=== PATIENT | female | born 2000 | race Two or more races ===

== ENCOUNTER 2019-03-26 09:37 | Emergency (ER) | payer MEDICAID ==
[~2019-03-26] VITALS: Ht 160 cm; Wt 56.2 kg
[2019-03-26 10:05] LABS: Urine Bacteria NONE SEEN /hpf (None Seen); Urine Blood Negative /uL (Negative); Urine Mucus FEW (None Seen); Urine Specific Gravity 1.016 (1.001-1.035); Urine WBC 216 /hpf (0 - 5)
[2019-03-26 13:03] VITALS: BP 98/53
== END 2019-03-26 14:50 | disposition home or self-care (01) ==
LOC: ER 09:37
DX: O23.41 Unspecified infection of urinary tract in pregnancy, first trimester (principal); O21.8 Other vomiting complicating pregnancy; Z3A.11 11 weeks gestation of pregnancy
CPT/HCPCS: 36415; 76801; 81001; 81025; 84702

== ENCOUNTER 2019-04-16 14:24 | Emergency (ER) | payer SELFPAY ==
[~2019-04-16] VITALS: Ht 157.5 cm; Wt 57.2 kg
[2019-04-16 15:15] VITALS: BP 114/75
== END 2019-04-16 17:26 | disposition home or self-care (01) ==
LOC: ER 14:24
DX: L25.9 Unspecified contact dermatitis, unspecified cause (principal); Z88.0 Allergy status to penicillin

== ENCOUNTER 2019-06-10 20:42 | Observation (INO) | payer MEDICAID ==
[2019-06-10] MEDS ORDERED: PREN-153 OR (22:25)
== END 2019-06-10 22:12 | disposition home or self-care (01) | DRG 566 ==
LOC: LDRP 20:42
PROVIDERS: ADMIT Obstetrics & Gynecology; ATTEND Obstetrics & Gynecology
DX: O26.892 Other specified pregnancy related conditions, second trimester (principal); M54.9 Dorsalgia, unspecified; R10.9 Unspecified abdominal pain; O99.89 Other specified diseases and conditions complicating pregnancy, childbirth and the puerperium; Z3A.21 21 weeks gestation of pregnancy
CPT/HCPCS: 59025; 81002; G0378

== ENCOUNTER 2019-06-21 12:24 | Emergency (ER) | payer MEDICAID ==
[~2019-06-21] VITALS: Ht 157.5 cm; Wt 63.0 kg
[~2019-06-21 12:24] MED LIST: PREN-153 OR
[2019-06-21 15:20] VITALS: BP 122/72
== END 2019-06-21 15:48 | disposition home or self-care (01) ==
LOC: ER 12:24
DX: R21 Rash and other nonspecific skin eruption (principal); Z88.0 Allergy status to penicillin

== ENCOUNTER 2019-07-30 21:31 | Observation (INO) | payer MEDICAID, OTHER ==
[~2019-07-30] VITALS: Ht 157.5 cm; Wt 65.3 kg
== END 2019-07-30 23:08 | disposition home or self-care (01) | DRG 566 ==
LOC: LDRP 21:31
PROVIDERS: ADMIT Specialist; ATTEND Specialist
DX: O9A.213 Injury, poisoning and certain other consequences of external causes complicating pregnancy, third trimester (principal); Z3A.28 28 weeks gestation of pregnancy; W19.XXXA Unspecified fall, initial encounter; Y93.89 Activity, other specified; Y92.89 Other specified places as the place of occurrence of the external cause
CPT/HCPCS: 59025; 76815; 81002; G0378

== ENCOUNTER 2019-10-18 09:31 | Observation (INO) | payer MEDICAID, OTHER | END 2019-10-18 12:52 | disposition home or self-care (01) | DRG 566 | LOC: LDRP 09:31 | PROVIDERS: ADMIT Obstetrics & Gynecology; ATTEND Obstetrics & Gynecology | DX: O46.93 Antepartum hemorrhage, unspecified, third trimester (principal); O21.2 Late vomiting of pregnancy; Z3A.39 39 weeks gestation of pregnancy | CPT/HCPCS: 59025; 76818; 81002; 84112; G0378; Q0114 ==

== ENCOUNTER 2019-10-19 19:29 | Inpatient (IN) | payer MEDICAID ==
[~2019-10-19] VITALS: Ht 157.5 cm; Wt 72.6 kg
[2019-10-19 20:54] LABS: Urine Bacteria NONE SEEN /hpf (None Seen); Urine Blood 2+ /uL (Negative); Urine Mucus FEW (None Seen); Urine Specific Gravity 1.025 (1.001-1.035); Urine WBC 31 /hpf (0 - 5)
[2019-10-19] MEDS ORDERED: LACTATED RINGER'S 1,000 ML IV SCH (21:29)
[2019-10-19] MEDS ORDERED: CARBOPROST TROMETHAMINE 250 MCG/1ML VIAL IM PRN (21:30)
[2019-10-19] MEDS ORDERED: PHISODERM TOP SOLN 240ML BTL TOP PRN (21:30)
[2019-10-19] MEDS ORDERED: BUTORPHANOL TARTRATE 2 MG/1 ML VIAL IV PRN (21:30)
[2019-10-19] MEDS ORDERED: METHYLERGONOVINE MALEATE 0.2 MG/ML AMP IM PRN (21:30)
[2019-10-19] MEDS ORDERED: LIDOCAINE 2%HCL (LOCAL ANESTH.) INJ 20ML MDV ID ONE (21:30)
[2019-10-19] MEDS ORDERED: ceFAZolin 1GM/50ML 50 ML IV SCH (22:00)
[2019-10-19 23:09] LABS: INR 0.94 (0.9-1.15); Partial Thromboplastin Time 27.9 sec (23.64-32.05)
[2019-10-19 23:14] LABS: Albumin 2.6 g/dL (3.4-5.0); Calcium 8.8 mg/dL (8.5-10.1); Potassium 3.5 mmol/L (3.5-5.1)
[2019-10-19 23:17] LABS: BUN/Creatinine Ratio 18.9; Bilirubin, Total 0.3 mg/dL (0.2-1.0)
[2019-10-19] MEDS: CLINDAMYCIN 900MG IV 50 ML IV SCH (23:20)
[2019-10-19 23:51] LABS: Basophils # (auto) 0 10 ^3/uL (0-0.2); Basophils % (auto) 0.2 % (0.0-2.0); Eosinophils # (auto) 0.1 10 ^3/uL (0-0.8); Eosinophils % (auto) 1.1 % (0.0-7.0); Hematocrit 39.4 % (36.0-46.0); Hemoglobin 13.2 g/dL (12.2-16.2); Lymphocytes # (auto) 1.9 10 ^3/uL (0.4-5.4); Lymphocytes % (auto) 15.8 % (10.0-50.0); Mean Corpuscular Hemoglobin 29.4 pg (28.0-32.0); Mean Corpuscular Hgb Conc. 33.5 g/dL (32.0-36.0); Mean Corpuscular Volume 87.8 fL (80.0-100.0); Monocytes % (auto) 8.9 % (0.0-12.0); Neutrophils # (auto) 8.8 10 ^3/uL (1.6-8.6); Nucleated Red Blood Cells % 0.1 %; Platelet Count (auto) 250 10^3/uL (140-450); Red Blood Cells 4.49 10^6/uL (4.0-5.20); Red Cell Distribution Width 14.2 % (11.8-14.3); White Blood Cell 11.8 10^3/uL (4.4-10.8)
[2019-10-20] MEDS ORDERED: LACTATED RINGER'S 500 ML IV ONE (00:22)
[2019-10-20] MEDS ORDERED: LACTATED RINGER'S 1,000 ML IV ONE (00:22)
[2019-10-20] MEDS ORDERED: NALOXONE HCL 0.4 MG/ML VIAL IV ONE (00:30)
[2019-10-20] MEDS ORDERED: ePHEDrine SULFATE 50 MG/ML AMP IV ONE (00:30)
[2019-10-20] MEDS ORDERED: fentaNYL 200mCg/100ml W ROPIVA 100 ML EPI SCH ×2 (00:30→01:15)
[2019-10-20] MEDS ORDERED: LIDOCAINE W/ EPINEPHRINE 1 % INJ 30ML IJ ONE (00:30)
[2019-10-20] MEDS ORDERED: fentaNYL CITRATE 100 MCG/2 ML VL IV ONE (00:30)
[2019-10-20] MEDS: DERMOPLAST 60ML BOTTLE TOP PRN (00:40)
[2019-10-20] MEDS: WITCH HAZEL-GLYCERIN PAD TOP PRN (00:40)
[2019-10-20] MEDS ORDERED: LACT. RINGERS/OXYTOCIN 20UNITS 1,000 ML IV SCH ×2 (01:34→14:01)
[2019-10-20] MEDS: LACT. RINGERS/OXYTOCIN 20UNITS 1,000 ML IV SCH ×2 (01:42→12:27)
[2019-10-20] MEDS ORDERED: TERBUTALINE SULFATE 1 MG/ML 1ML VIAL SC ONE (01:45)
[2019-10-20] MEDS: CLINDAMYCIN 900MG IV 50 ML IV SCH ×3 (05:52→21:44)
[2019-10-20] MEDS ORDERED: LACT. RINGERS/OXYTOCIN 20UNITS 500 ML IV ONE (13:01)
[2019-10-20] MEDS ORDERED: ACETAMINOPHEN 325 MG TAB PO PRN (13:15)
[2019-10-20] MEDS: IBUPROFEN 600 MG TAB PO PRN ×2 (13:20→19:41)
[2019-10-20 14:42] VITALS: BP 98/54
[2019-10-20 19:00] VITALS: BP 101/54
[2019-10-20 23:00] VITALS: BP 101/56
[2019-10-21] MEDS: WITCH HAZEL-GLYCERIN PAD TOP PRN (02:14)
[2019-10-21] MEDS: IBUPROFEN 600 MG TAB PO PRN ×2 (02:14→10:29)
[2019-10-21] MEDS: DERMOPLAST 60ML BOTTLE TOP PRN (02:14)
[2019-10-21 03:00] VITALS: BP 103/55
[2019-10-21 05:06] LABS: RPR Non Reactive (Non Reactive)
[2019-10-21] MEDS: CLINDAMYCIN 900MG IV 50 ML IV SCH (05:30)
[2019-10-21 07:00] VITALS: BP 100/57
[2019-10-21] MEDS ORDERED: DOCUSATE CALCIUM 240 MG CAP PO SCH (10:00)
[2019-10-21 11:00] VITALS: BP 103/56
== END 2019-10-21 13:40 | disposition home or self-care (01) | DRG 560 ==
LOC: OBSVTOIN 19:29 → LDRP 19:29
PROVIDERS: ADMIT Specialist; ATTEND Specialist
PROC: 0KQM0ZZ Repair Perineum Muscle, Open Approach (ICD-10-PCS; principal; 2019-10-20)
PROC: 10E0XZZ Delivery of Products of Conception, External Approach (ICD-10-PCS; 2019-10-20)
PROC: 0W8NXZZ Division of Female Perineum, External Approach (ICD-10-PCS; 2019-10-20)
PROC: 00HU33Z Insertion of Infusion Device into Spinal Canal, Percutaneous Approach (ICD-10-PCS; 2019-10-20)
PROC: 3E0R3BZ Introduction of Anesthetic Agent into Spinal Canal, Percutaneous Approach (ICD-10-PCS; 2019-10-20)
DX: O42.92 Full-term premature rupture of membranes, unspecified as to length of time between rupture and onset of labor (principal); O70.1 Second degree perineal laceration during delivery; Z3A.39 39 weeks gestation of pregnancy; Z37.0 Single live birth
CPT/HCPCS: 36415; 51702; 59025; 59409; 62282; 80053; 81001; 81002; 84112; 85025; 85610; 85730; 86592; 86850; 86900; 86901; 94760; 94762; 96361; 96366; 96372; G0378; J2590; J3490

== ENCOUNTER 2020-02-18 10:28 | Emergency (ER) | payer MEDICAID ==
[~2020-02-18] VITALS: Ht 160 cm; Wt 66.7 kg
[2020-02-18 10:39] VITALS: BP 129/70
== END 2020-02-18 11:29 | disposition home or self-care (01) ==
LOC: ER 10:28
DX: S91.201A Unspecified open wound of right great toe with damage to nail, initial encounter (principal); Z79.899 Other long term (current) drug therapy; Z88.0 Allergy status to penicillin; W22.8XXA Striking against or struck by other objects, initial encounter; Y93.89 Activity, other specified; Y92.89 Other specified places as the place of occurrence of the external cause; Y99.8 Other external cause status
CPT/HCPCS: 11730

== ENCOUNTER 2022-03-31 13:29 | Emergency (ER) | payer MEDICAID ==
[~2022-03-31] VITALS: Ht 160 cm; Wt 79.0 kg
[~2022-03-31 13:29] MED LIST changes: -PREN-153 OR; +PREN1TAB71 OR
[2022-03-31 14:35] VITALS: BP 114/67
[2022-03-31] MEDS ORDERED: BACDST PO (19:22)
== END 2022-03-31 22:45 | disposition home or self-care (01) ==
LOC: ER 13:29
DX: S61.101A Unspecified open wound of right thumb with damage to nail, initial encounter (principal); Z79.899 Other long term (current) drug therapy; Z88.0 Allergy status to penicillin; X58.XXXA Exposure to other specified factors, initial encounter; Y93.89 Activity, other specified; Y92.89 Other specified places as the place of occurrence of the external cause; Y99.8 Other external cause status

== ENCOUNTER 2023-07-09 21:59 | Inpatient (IN) | payer MEDICAID ==
[~2023-07-09] VITALS: Ht 160 cm; Wt 82.9 kg
[~2023-07-09 21:59] MED LIST changes: +BACDST PO
[2023-07-09] MEDS: MAALOX PLUS or MAALOX 30 ML PO ONE (23:25)
[2023-07-09] MEDS: HYDROcodone-ACET 5/325MG TAB PO ONE (23:27)
[2023-07-09 23:46] LABS: Basophils # (auto) 0 10 ^3/uL (0-0.2); Basophils % (auto) 0.2 % (0.0-2.0); Eosinophils # (auto) 0.1 10 ^3/uL (0-0.8); Eosinophils % (auto) 0.5 % (0.0-7.0); Hematocrit 41.1 % (36.0-46.0); Hemoglobin 13.8 g/dL (12.2-16.2); Lymphocytes # (auto) 1.8 10 ^3/uL (0.4-5.4); Mean Corpuscular Hemoglobin 29.5 pg (28.0-32.0); Mean Corpuscular Hgb Conc. 33.6 g/dL (32.0-36.0); Mean Corpuscular Volume 87.9 fL (80.0-100.0); Monocytes % (auto) 4.8 % (0.0-12.0); Neutrophils # (auto) 16.8 10 ^3/uL (1.6-8.6); Neutrophils % (auto) 85.5 % (37.0-80.0); Red Blood Cells 4.68 10^6/uL (4.0-5.20); Red Cell Distribution Width 12.6 % (11.8-14.3); White Blood Cell 19.7 10^3/uL (4.4-10.8)
[2023-07-10] VITALS (8 sets, daily range): BP systolic 87–110; BP diastolic 40–71; PULSE 56–86; RESP 16–17; TEMP 97.8–98.4; O2SAT 95–98
[2023-07-10 00:10] LABS: Alanine Aminotransferase 77 U/L (7-40); Albumin 4.7 g/dL (3.2-4.8); Alkaline Phosphatase 113 U/L (46-116); Anion Gap 6 (5-15); Aspartate Aminotransferase 171 U/L (13-40); BUN/Creatinine Ratio 13.8 (10.0-20.0); Bilirubin, Total 0.6 mg/dL (0.2-1.0); Blood Urea Nitrogen 8 mg/dL (9-23); Calcium 9.4 mg/dL (8.7-10.4); Carbon Dioxide 27 mmol/L (20-30); Chloride 107 mmol/L (98-107); Glucose 110 mg/dL (74-106); Lipase 36 U/L (12-53); Sodium 140 mmol/L (136-145)
[2023-07-10 00:20] LABS: Total Protein 7.4 g/dL (5.7-8.2)
[2023-07-10] MEDS ORDERED: PIPERACILLIN-TAZOB 3.375GM 100 ML IV ONE (01:15)
[2023-07-10] MEDS: SODIUM CHLORIDE 0.9% 1,000 ML IV ONE (01:55)
[2023-07-10] MEDS: levoFLOXacin 500MG 100 ML IV ONE (02:23)
[2023-07-10] MEDS ORDERED: NITROGLYCERIN 0.4 MG SL TAB SL PRN (05:45)
[2023-07-10] MEDS ORDERED: MORPHINE SULFATE INJ 2 MG/ml SYRG IV PRN (05:45)
[2023-07-10] MEDS ORDERED: DOCUSATE SOD 100 MG CAP PO PRN (05:45)
[2023-07-10] MEDS ORDERED: IBUPROFEN 600 MG TAB PO PRN (05:45)
[2023-07-10] MEDS: SODIUM CHLOR 0.9% PF (SALINE LOCK) 10ML VIAL/SYR IV SCH (06:23)
[2023-07-10] MEDS: metroNIDAZOLE 500MG/100ML 100 ML IV SCH (06:23)
[2023-07-10 09:33] LABS: Urine Bacteria FEW /hpf (None Seen); Urine Blood 3+ /uL (Negative); Urine Clarity HAZY (Clear); Urine Color Yellow (Yellow); Urine Hyaline Cast FEW /lpf (0 - 2); Urine Mucus FEW (None Seen); Urine Protein, UAD 1+ (Negative); Urine Specific Gravity 1.024 (1.001-1.035); Urine Urobilinogen Normal (Negative); Urine WBC 36 /hpf (0 - 5); Urine pH 7.5 (5.0-8.0)
[2023-07-10] MEDS: SODIUM CHLORIDE 0.9% 1,000 ML IV SCH (14:52)
[2023-07-10] MEDS: HYDROcodone-ACET 5/325MG TAB PO PRN (20:04)
[2023-07-11] VITALS (8 sets, daily range): BP systolic 97–119; BP diastolic 52–77; PULSE 51–81; RESP 16–18; TEMP 97.3–98.4; O2SAT 95–98
[2023-07-11] MEDS: levoFLOXacin 500MG 100 ML IV SCH (04:45)
[2023-07-11 06:03] LABS: Basophils # (auto) 0.1 10 ^3/uL (0-0.2); Basophils % (auto) 1.3 % (0.0-2.0); Eosinophils # (auto) 0.3 10 ^3/uL (0-0.8); Eosinophils % (auto) 4.7 % (0.0-7.0); Hematocrit 39.8 % (36.0-46.0); Hemoglobin 13.4 g/dL (12.2-16.2); Lymphocytes # (auto) 1.7 10 ^3/uL (0.4-5.4); Lymphocytes % (auto) 31.7 % (10.0-50.0); Mean Corpuscular Hemoglobin 29.9 pg (28.0-32.0); Mean Corpuscular Hgb Conc. 33.6 g/dL (32.0-36.0); Mean Corpuscular Volume 89.1 fL (80.0-100.0); Monocytes # (auto) 0.5 10 ^3/uL (0-1.3); Monocytes % (auto) 9.1 % (0.0-12.0); Neutrophils # (auto) 2.9 10 ^3/uL (1.6-8.6); Neutrophils % (auto) 53.2 % (37.0-80.0); Nucleated Red Blood Cells % 0.1 %; Red Blood Cells 4.47 10^6/uL (4.0-5.20); Red Cell Distribution Width 12.7 % (11.8-14.3); White Blood Cell 5.4 10^3/uL (4.4-10.8)
[2023-07-11 06:17] LABS: Alanine Aminotransferase 377 U/L (7-40); Albumin 3.9 g/dL (3.2-4.8); Alkaline Phosphatase 199 U/L (46-116); Anion Gap 6 (5-15); Aspartate Aminotransferase 256 U/L (13-40); BUN/Creatinine Ratio 11.4 (10.0-20.0); Bilirubin, Total 2.5 mg/dL (0.2-1.0); Blood Urea Nitrogen 5 mg/dL (9-23); Calcium 8.5 mg/dL (8.7-10.4); Carbon Dioxide 23 mmol/L (20-30); Chloride 110 mmol/L (98-107); Glucose 102 mg/dL (74-106); Potassium 3.9 mmol/L (3.5-5.1); Sodium 139 mmol/L (136-145); Total Protein 6.2 g/dL (5.7-8.2)
[2023-07-11] MEDS: MORPHINE SULFATE INJ 2 MG/ml SYRG IV PRN (16:24)
[2023-07-12] VITALS (7 sets, daily range): BP systolic 89–118; BP diastolic 49–67; PULSE 52–68; RESP 18; TEMP 98.3–98.7; O2SAT 97–99
[2023-07-12] MEDS: ONDANSETRON HCL 4 MG/2 ML VIAL IV PRN (06:20)
[2023-07-12 06:37] LABS: Alanine Aminotransferase 279 U/L (7-40); Alkaline Phosphatase 199 U/L (46-116); Anion Gap 7 (5-15); Aspartate Aminotransferase 90 U/L (13-40); Bilirubin, Total 1.2 mg/dL (0.2-1.0); Calcium 8.6 mg/dL (8.7-10.4); Carbon Dioxide 23 mmol/L (20-30); Chloride 109 mmol/L (98-107); Glucose 104 mg/dL (74-106); Lipase 30 U/L (12-53); Potassium 3.7 mmol/L (3.5-5.1); Sodium 139 mmol/L (136-145); Total Protein 6.4 g/dL (5.7-8.2)
[2023-07-12 06:40] LABS: Basophils # (auto) 0 10 ^3/uL (0-0.2); Basophils % (auto) 0.6 % (0.0-2.0); Eosinophils # (auto) 0.3 10 ^3/uL (0-0.8); Eosinophils % (auto) 5.4 % (0.0-7.0); Hematocrit 38.4 % (36.0-46.0); Lymphocytes # (auto) 1.8 10 ^3/uL (0.4-5.4); Lymphocytes % (auto) 31.2 % (10.0-50.0); Mean Corpuscular Hemoglobin 30.2 pg (28.0-32.0); Mean Corpuscular Volume 88.7 fL (80.0-100.0); Monocytes # (auto) 0.5 10 ^3/uL (0-1.3); Monocytes % (auto) 9.3 % (0.0-12.0); Neutrophils # (auto) 3.1 10 ^3/uL (1.6-8.6); Neutrophils % (auto) 53.5 % (37.0-80.0); Red Blood Cells 4.32 10^6/uL (4.0-5.20); Red Cell Distribution Width 13.2 % (11.8-14.3); White Blood Cell 5.8 10^3/uL (4.4-10.8)
[2023-07-12 06:49] LABS: BUN/Creatinine Ratio 10.6 (10.0-20.0); Blood Urea Nitrogen < 5 mg/dL (9-23)
[2023-07-12 18:25] LABS: COVID19 ANTIGEN SOFIA FIA NEGATIVE (NEGATIVE)
[2023-07-13] VITALS (7 sets, daily range): BP systolic 103–122; BP diastolic 58–78; PULSE 54–84; RESP 16–20; TEMP 98–98.3; O2SAT 96–98
[2023-07-14] VITALS (8 sets, daily range): BP systolic 94–115; BP diastolic 54–67; PULSE 56–90; RESP 18–20; TEMP 97.9–98.4; O2SAT 96–98
[2023-07-14] MEDS: metroNIDAZOLE 500MG/100ML 100 ML IV ONE (15:23)
[2023-07-14] MEDS: metroNIDAZOLE 500MG/100ML 100 ML IV SCH (21:42)
[2023-07-15 05:00] VITALS: BP 99/61; PULSE 66; RESP 19; TEMP 97.7; O2SAT 96
[2023-07-15 08:00] VITALS: RESP 20; O2SAT 97
[2023-07-15 09:00] VITALS: BP 112/70; PULSE 99; RESP 20; TEMP 98.2; O2SAT 97
[2023-07-15] MEDS: cefTRIAXone 1GM/50ML D5W 50 ML IV SCH (10:54)
== END 2023-07-15 11:40 | disposition short-term general hospital (02) ==
LOC: EDBD 21:59 → ER 21:59 → OVERFLOW 07-10 05:44 → WEST WING 07-10 09:45
PROVIDERS: ADMIT Nurse Practitioner Family; ATTEND Family Medicine
DX: K80.71 Calculus of gallbladder and bile duct without cholecystitis with obstruction (principal); K76.0 Fatty (change of) liver, not elsewhere classified; E86.0 Dehydration; K29.70 Gastritis, unspecified, without bleeding; R79.89 Other specified abnormal findings of blood chemistry; Z20.822 Contact with and (suspected) exposure to COVID-19; Z88.0 Allergy status to penicillin
CPT/HCPCS: 36415; 74176; 74181; 76705; 78226; 80053; 81001; 83690; 84702; 85025; 87426; 96365; G0378; J1956; J2405; J3490